=== PATIENT | male | born 1950 | race Caucasian/White ===

== ENCOUNTER 2021-04-23 06:03 | Day surgery (SDC) | payer MEDICARE ==
[~2021-04-23] VITALS: Ht 180.3 cm; Wt 98.1 kg
[~2021-04-23 06:03] MED LIST: ADALAT CC PO; ATOR40TA PO; Adult Low Dose81 MG PO; Aspir 8181 MG PO; BACL10 PO; Calcium 500 MG1 EACH PO; Dentagel56 GM DT; FINA5 PO; Furosemide40 MG PO; INSDET100 SC; INSUASPI SC; INSULANPEN SC; LEVSOD75 PO; METF500C PO; MULTI VITAMIN1 EACH PO; NATURAL CALCIU500 MG; PREVIDENT 5000100 ML DT; TAMS.4ER PO; TERA5 PO; Zestril40 MG PO
[2021-04-23] MEDS ORDERED: ELIQUIS5 MG PO (06:32)
--- NOTE | 2021-04-23 10:56 | NUR ---
PRESCRIPTION FOR ANTIBIOTIC CALLED INTO [facility].
[2021-04-23] MEDS ORDERED: CEPH500 PO (11:00)
[2021-04-23] MEDS ORDERED: HYDR1TAB94 PO (11:01)
--- NOTE | 2021-04-23 11:52 | NUR ---
CALLED [facility] TO INFORM OF DISCHARGE TIME.
--- NOTE | 2021-04-23 11:53 | NUR ---
ICE PACK APPLIED TO AFFECTED AREA
--- NOTE | 2021-04-23 12:40 | NUR ---
PT RETURNED FROM RADIOLOGY.
--- NOTE | 2021-04-23 12:47 | NUR ---
L CHEST PRESSURE DRSG REMOVED-SITE SOFT WITHOUT SWELLING OR DRAINAGE.
--- NOTE | 2021-04-23 13:47 | NUR ---
Discharge PT REMAINED A&OX3 AND STATED A SMALL AMOUNT OF PAIN AT INSERTION SITE WITH MOVEMENT OF ARM WHILE DRESSING/WASHING HANDS. SITE REMAINS CDI-NO HEMATOMA NOTED-PRESSURE DRESSING REMOVED. CHEST X-RAY PROCESSED. IV DC'D WITH CANYLA IN TACT. PT ABLE TO DRESS SELF WITH LITTLE HELP. DISCHARGE PAPERWORK GONE OVER WITH PT. PT VERBALLY STATED THE UNDERSTANDING OF THE DISCHARGE EDUCAITON AND DENIED ANY QUESTIONS AT THIS TIME. PT WHEELED OUT BY AUGUSTIN Rodriguez RN.
== END 2021-04-23 13:45 | disposition home or self-care (01) ==
LOC: MHTC 06:03
DX: I49.5 Sick sinus syndrome (principal); I44.2 Atrioventricular block, complete; I48.0 Paroxysmal atrial fibrillation; I10 Essential (primary) hypertension; E03.9 Hypothyroidism, unspecified; J44.9 Chronic obstructive pulmonary disease, unspecified; M19.90 Unspecified osteoarthritis, unspecified site; E11.9 Type 2 diabetes mellitus without complications; E78.5 Hyperlipidemia, unspecified; G47.33 Obstructive sleep apnea (adult) (pediatric); Z85.51 Personal history of malignant neoplasm of bladder; Z88.1 Allergy status to other antibiotic agents; Z88.5 Allergy status to narcotic agent; Z88.0 Allergy status to penicillin; Z91.048 Other nonmedicinal substance allergy status; Z79.01 Long term (current) use of anticoagulants; Z79.4 Long term (current) use of insulin
CPT/HCPCS: 33208; 71046; 76937; 93005; 93010; 99152; 99153; A9270; C1781; C1785; C1894; C1898; J1644; J2250; J3010; J3370; J7030; J7040